=== PATIENT | female | born 1955 ===

== ENCOUNTER 2018-06-23 06:51 | Outpatient (CLI) | payer OTHER, SELFPAY ==
--- NOTE | 2018-06-23 10:30 | DI.MAMMO_ITS ---
SYMPTOM/DIAGNOSIS: SCREENING MAMMOGRAMS: Mammograms were interpreted according to the usual protocol including computer analysis with CAD system, tomosynthesis and C view imaging. Comparison is made with prior examinations. Breast density, Category B. No masses or microcalcifications are seen. There is nothing to suggest malignancy. IMPRESSION: Negative mammogram. Routine screening is recommended. Category 1. MQSA ASSESSMENT OF FINDINGS: Negative. Category 1. Patient will receive a letter notifying them of these results. BI-RADS category B. There are scattered areas of fibroglandular density.
== END 2018-06-23 07:11 ==
PROVIDERS: PCP Internal Medicine; Visit Provider Obstetrics & Gynecology Gynecology
DX: Z12.31 Encounter for screening mammogram for malignant neoplasm of breast (principal)
CPT/HCPCS: 77063; 77067

== ENCOUNTER 2020-04-15 23:50 | Day surgery (SDC) | payer OTHER, SELFPAY ==
[2020-04-15 23:56] VITALS: BP 118/99; PULSE 89; RESP 16; TEMP 36.5; O2SAT 99
--- NOTE | 2020-04-16 00:04 | W.ED.GENAD ---
Discharge Plan Disposition Patient Disposition: [facility] DAY SURGERY UNIT Condition: Stable Discharge Details Chief Complaint: GenMedical Clinical Impression: Esophageal foreign body Primary Care Provider: Crystal Riley ED Provider: Guille Mix Home Meds and New Rx's Prescriptions: No Action cetirizine [Zyrtec] 10 mg tablet 10 mg PO DAILY RF: 0 amlodipine 5 mg tablet 5 mg PO DAILY RF: 0 levothyroxine [Synthroid] 75 mcg tablet 75 mcg PO DAILY RF: 0 omeprazole 20 mg capsule,delayed release(DR/EC) 20 mg PO DAILY RF: 0 Voltaren 75 mg tablet 75 mg PO DAILY RF: 0 Medical Decision Making 65 yo female with no prior food impactions requiring endoscopy removal though [place] [facility] [place] stating she swallowed steak around 8pm and is stuck and she is unable to swallow liquids. She arrives hd stable speaking in full sentences without stridor or drooling. Points to upper sternum where she feels it is stuck normal oropharynx. Likely does have food impaction, will have her try effervescent no improvement with effervescent, unable to get even water down, will discuss with hotel controller general surgery spoke with Dr Rodriguez who will see pt at 7am, pt agreeable to stay in ED until then. Will be monitored until general surgery evaluates Dr. Rodriguez evaluated the pt plan to bring for endoscopy this AM and d/c home from there. pt reassessed during the shift and remained stable without drooling or stridor Differential Diagnosis Differential Diagnosis: esophageal foregin body, achalasia HPI General Mode of arrival: ambulatory. Date/Time Provider Initiated Documentation: 04/15/20 23:51. Limitations to Documentation: no limitations. Information obtained by: patient. History of Present Illness 65 year old F presents to the emergency department with the chief complaint of steak stuck in sore throat, described as moderate, and it has been constant. No relieving factors improve symptom(s), No exacerbating factors reported . Patient did receive the following treatments prior to arrival, none Related Data Home Medications Medication Instructions Recorded Confirmed amlodipine 5 mg tablet 5 mg PO DAILY 11/10/18 04/16/20 cetirizine 10 mg tablet 10 mg PO DAILY 11/10/18 04/16/20 levothyroxine 75 mcg tablet 75 mcg PO DAILY 11/10/18 04/16/20 omeprazole 20 mg capsule,delayed 20 mg PO DAILY 11/10/18 04/16/20 release Voltaren 75 mg PO DAILY 04/16/20 04/16/20 Allergies Allergy/AdvReac Type Severity Reaction Status Date / Time banana Allergy Verified 04/16/20 00:08 green pepper Allergy Verified 04/16/20 00:08 iodine Allergy Verified 04/16/20 00:08 pineapple Allergy Verified 04/16/20 00:08 shellfish derived Allergy Verified 04/16/20 00:08 Sulfa (Sulfonamide Allergy Verified 04/16/20 00:08 Antibiotics) codeine AdvReac Severe Naseau/Vomi Verified 04/16/20 00:08 ting hydrocodone AdvReac Severe [place]/Vomi Verified 04/16/20 00:08 ting oxycodone AdvReac Severe [place]/Vomi Verified 04/16/20 00:08 ting latex AdvReac Hives Verified 04/16/20 00:08 Review of Systems All systems reviewed & are unremarkable except as noted in HPI and below Constitutional Constitutional: Denies chills, Denies fever(s) and Denies weakness Cardiovascular Cardiovascular: Denies dyspnea Respiratory Respiratory: Denies cough and Denies dyspnea Gastrointestinal Gastrointestinal: Denies abdominal pain, Denies nausea and Denies vomiting Musculoskeletal Musculoskeletal: Denies joint swelling Neurologic Neurologic: Denies weakness Psychiatric Psychiatric: Denies depression [facility] Medical History (Updated 04/16/20 @ 01:00 by Guille Mix MD) Bilateral hearing loss (Acute) GERD (gastroesophageal reflux disease) (Chronic) Hypertension (Chronic) Hypothyroidism (Chronic) Osteoarthritis (Chronic) Tendonitis of elbow or forearm (Acute) Surgical History History of cholecystectomy (Chronic) History of hysterectomy for cancer (Acute) Social History Smoking/Tobacco Use Status: Never Second Hand Exposure: Yes Alcohol Intake: current Alcohol Intake frequency: a few times a month Drug use: Never Substance use type: does not use Seatbelt use: always Do you feel safe at home: Yes Do you feel safe in your relationship?: Yes Exam Const General: no acute distress Orientation: alert HENNV Head: normal to inspection Ears: external ears normal General nose exam: external nose normal Mouth: moist mucous membranes Eyes General: appearance normal, both eyes and all related structures Neck Neck: normal visual inspection Resp Effort & Inspection: normal respiratory effort and able to speak in complete sentences Cardio Rate: regular rate Skin General skin exam: no rashes or lesions noted Neuro General: patient alert and patient oriented x3 Extrem General: normal to inspection Psych Mental Status: mental status grossly normal
--- NOTE | 2020-04-16 00:40 | NUR.NOTE ---
Nursing Note:Dr. Mix spoke with the surgeon financial consultant. He will be in between 0500 and 0700 and take patient to the OR to remove the foreign body. Dr. Mix will give patient the option to go home or stay here. Patient has decided to stay here till the AM.
[2020-04-16] MEDS: Normal Saline 1,000 ML 150 ML IV (02:23)
--- NOTE | 2020-04-16 05:45 | NUR.NOTE ---
Nursing Note: Awake ambulatory to the bathroom.No drooling, managing her saliva.
[2020-04-16 08:14] VITALS: BP 137/83; PULSE 80; RESP 18; O2SAT 100
[2020-04-16 08:17] VITALS: TEMP 36.7
--- NOTE | 2020-04-16 08:36 | W.PM.HP.N ---
Date of service: 04/16/20 Time of Service: 08:36 Assessment and Plan Assessment and plan (1) Esophageal foreign body: Status: Acute Assessment and plan: I advised EGD with possible dilation. The procedure and risks of perforation with need for surgery discussed. Dilation may not improve symptoms or may need to be repeated in the future. If the esophagus is too inflamed, dilation may be reserved for a later elective procedure. May consider biopsy for eosinophilic esophagitis. The patient agrees to proceed. History of Present Illness Narrative: This 65 year old woman had steak become lodged in her esophagus last evening. She tried warm Coke and waited several hours for it to resolve without success. She did have some regurgitation of saliva on the drive to the ER but has now been able to control her secretions. She still feels that something is lodged in the esophagus. There has been no improvement with effervescent granules times two. Her reflux is well controlled with PPI and occasional evening H2 dennise. This has never happened to her previously but she did notice some minor issues with bread passing slowly. EGD done about 10 years ago at [facility] [place] was unremarkable, no Barretts. Review of Systems All systems reviewed & are unremarkable except as noted in HPI and below PFSH Medical History Bilateral hearing loss (Acute) GERD (gastroesophageal reflux disease) (Chronic) Hypertension (Chronic) Hypothyroidism (Chronic) Osteoarthritis (Chronic) Tendonitis of elbow or forearm (Acute) Surgical History History of cholecystectomy (Chronic) History of hysterectomy for cancer (Acute) Social History Smoking/Tobacco Use Status: Never Second Hand Exposure: Yes Alcohol Intake: current Alcohol Intake frequency: a few times a month Drug use: Never Substance use type: does not use Seatbelt use: always Do you feel safe at home: Yes Do you feel safe in your relationship?: Yes Meds Home Medications and Allergies Home Medications Medication Instructions Recorded Confirmed Type amlodipine 5 mg tablet 5 mg PO DAILY 11/10/18 04/16/20 History cetirizine 10 mg tablet 10 mg PO DAILY 11/10/18 04/16/20 History levothyroxine 75 mcg tablet 75 mcg PO DAILY 11/10/18 04/16/20 History omeprazole 20 mg capsule,delayed 20 mg PO DAILY 11/10/18 04/16/20 History release Voltaren 75 mg PO DAILY 04/16/20 04/16/20 History Allergies Allergy/AdvReac Type Severity Reaction Status Date / Time banana Allergy Verified 04/16/20 00:08 green pepper Allergy Verified 04/16/20 00:08 iodine Allergy Verified 04/16/20 00:08 pineapple Allergy Verified 04/16/20 00:08 shellfish derived Allergy Verified 04/16/20 00:08 Sulfa (Sulfonamide Allergy Verified 04/16/20 00:08 Antibiotics) codeine AdvReac Severe [place]/Vomi Verified 04/16/20 00:08 ting hydrocodone AdvReac Severe [place]/Vomi Verified 04/16/20 00:08 ting oxycodone AdvReac Severe [place]/Vomi Verified 04/16/20 00:08 ting latex AdvReac Hives Verified 04/16/20 00:08 Exam Narrative Exam Narrative: No acute distress Able to control secretions Lungs CTA Heart RRR Abdomen soft, nontender Results Last Vital Signs Temp 98.1 F 04/16/20 08:17 Pulse 80 04/16/20 08:14 Resp 18 04/16/20 08:14 BP 137/83 04/16/20 08:14 Pulse Ox 100 04/16/20 08:14 COVID-19 Screening Have you,or household,traveled outside [place] in last 14 days?: No Had IN PERSON contact w/suspected or confirmed C-19 person: No
[2020-04-16 08:43] VITALS: BP 137/83; PULSE 80; RESP 18; TEMP 36.7; O2SAT 100
[2020-04-16] MEDS: Lactated Ringers 1,000 ML 100 ML IV (09:20)
--- NOTE | 2020-04-16 09:35 | ESO_PTH ---
PATIENT: Mary Kate Barba LOC: [facility] U#:[id number] AGE/SX: 65/F ROOM: RE04/16/[address]: Arin Rodriguez MD : [id number] BED: DIS: 04/16/2020 SPEC #: [id number] RECD: 04/16/20 10:31 STATUS: ENT REQ #: [id number] MARLEY: 04/16/20 09:[address]: Arin Rodriguez DEPT: Surgical Specimen RECD BY: Kareen Hernandez ENTERED: 04/16/20 10:37 SP TYPE: Eso YEMI DR: Crystal Riley Tissues: 1 - STOMACH BIOPSY 2 - ESOPHAGUS BIOPSY 3 - ESOPHAGUS BIOPSY Procedures: GROSS AND MICRO LEVEL 4 Comments: [id number]
--- NOTE | 2020-04-16 10:11 | W.PM.DSUDISC ---
Discharge Plan Disposition Patient Disposition: HOME Condition: Stable Discharge Details Chief Complaint: GenMedical Clinical Impression: Esophageal foreign body Reason For Visit: EGD Attending Provider: Arin Rodriguez Primary Care Provider: Crystal Riley ED Provider: Guille Mix Home Meds and New Rx's Prescriptions: Continued cetirizine [Zyrtec] 10 mg tablet 10 mg PO DAILY RF: 0 amlodipine 5 mg tablet 5 mg PO DAILY RF: 0 levothyroxine [Synthroid] 75 mcg tablet 75 mcg PO DAILY RF: 0 omeprazole 20 mg capsule,delayed release(DR/EC) 20 mg PO DAILY RF: 0 Voltaren 75 mg tablet 75 mg PO DAILY RF: 0 Discharge Instructions Additional Instructions: Findings: The food bolus had passed. The distal esophagus is moderately inflamed. Biopsies were done and my office will contact you with results. A benign stricture was also seen but not dilated due to the inflammation and pending biopsies. Increase your omeprazole to twice a day for one month. Follow up: My office will contact you. Please call if you develop: fevers >101.5 Nausea or Vomiting Abdominal/chest pain that is not transient DAY SURGERY UNIT POST EGD INSTRUCTIONS 1. Because there will be medication in your system for the next 24 hours, you may feel a little sleepy. Your coordination will be affected. Therefore: a. Do not drive or operate dangerous equipment for 24 hours. b. Do not drink alcohol beverages for 24 hours (not even beer). c. Plan to go home and rest for the day. 2. Generally there are no restrictions on your activity after a day or so has gone by, but you may feel a bit fatigued for a few days. 3 After you arrive home you may have a light meal and return to a normal diet as you can tolerate it without feeling sick to your stomach. 4. After surgery, you may feel pain or discomfort. This should be only transient, but if it persists please contact your doctor. 5. If there are any questions regarding the findings of your procedure, please feel free to contact your doctor. 6. If you are unable to contact your doctor with a problem, contact the hospital at [phone]. 7. Continue all your regular medications unless directed otherwise. I understand the above instructions and have no questions. Signature of Patient or Responsible Adult Escort Date/Time Name of Responsible Adult Escort Signature of Nurse Date/Time Activity:: Activity as Tolerated Diet:: Soft for two days Discharge Orders Discharge Orders: Discharge Order (Routine); Ordered 04/16/20 Ordered By: Arin Rodriguez DS: Diagnosis Discharge Diagnosis (1) Esophagitis: Status: Acute (2) Benign esophageal stricture: Status: Acute
--- NOTE | 2020-04-16 10:15 | W.PM.ENDDOP ---
Date of service: 04/16/20 Time of Service: 10:16 Endoscopy Report DATE OF PROCEDURE: 04/16/20 PRE-OP DIAGNOSIS: Esophageal foreign body POST-OP DIAGNOSIS: other (Esophagitis, benign distal esophageal stricture) PROCEDURE: EGD with gastric and esophageal biopsies. SURGEON: Arin Rodriguez ANESTHESIA: GETA INDICATIONS: This 65-year-old woman presents with a piece of steak stuck in her esophagus for several hours. She initially had regurgitation but now has been able to control her secretions. She has a longstanding history of reflux. PROCEDURE DESCRIPTION: The patient was placed in the left lateral position and propofol titrated to sedation. The endoscope was advanced into the esophagus under direct visualization. The food bolus had passed and was not seen in the esophagus or stomach. The scope was passed through the stomach and into the duodenum. There was no duodenitis or ulceration noted. The stomach itself was normal including on retroflexed view of the fundus and lesser curvature. Routine biopsies were taken from the gastric antrum to evaluate for H pylori. The GE junction was inspected and showed a benign stricture. The distal third of the esophagus showed moderate inflammation with some areas suggesting eosinophilic esophagitis. Biopsies were taken from the distal and mid esophagus. There was not obvious Barretts esophagus present. I did not dilate due to the inflammation and pending biopsy results. The patient tolerated the procedure well and was stable to recovery. She is advised to increase her PPI to BID. Will contact with biopsy results and proceed as indicated.
[2020-04-16 10:38] VITALS: BP 134/89; PULSE 77; RESP 18; TEMP 36.1; O2SAT 97
[2020-04-16 20:37] LABS: COVID-19 RT-PCR UVMMC Result Negative (Negative)
== END 2020-04-16 11:16 | disposition home or self-care (01) ==
LOC: ER 04-16 07:14 → SUR 04-16 08:44
PROVIDERS: Emergency Provider Emergency Medicine; PCP Family Medicine; Visit Provider Surgery
PROC: 0DC68ZZ Extirpation of Matter from Stomach, Via Natural or Artificial Opening Endoscopic (ICD-10-PCS; CPT 43247; principal; 2020-04-16 09:00)
DX: T18.128A Food in esophagus causing other injury, initial encounter (principal); K21.0 Gastro-esophageal reflux disease with esophagitis; E03.9 Hypothyroidism, unspecified; I10 Essential (primary) hypertension; Z11.59 Encounter for screening for other viral diseases; K22.2 Esophageal obstruction
CPT/HCPCS: 43239; 36415; 88305; 96360; 96361; 99222; 99285; U0003; 99283; J1100; J2250

== ENCOUNTER → 2021-01-31 00:38 | Outpatient (CLI) | payer OTHER, SELFPAY ==
--- NOTE | 2021-01-31 | DI.CT_ITS ---
Exam(s) CT ABDOMEN PELVIS W EXAM: CT ABDOMEN PELVIS W CLINICAL HISTORY: ACUTE ABD PAIN, R10.9 TECHNIQUE: Imaging Protocol: Axial computed tomography images with coronal and sagittal reformatted images were created and reviewed CONTRAST MATERIAL: Intravenous: Omnipaque 350 Contrast volume:100 mL Oral: Yes COMPARISON: No exams were available for comparison FINDINGS: ABDOMEN: Lung Bases: Normal where visualized. There is a small hiatal hernia. Liver: Normal density. No measurable mass. Portal, Superior Mesenteric, and Splenic Veins: Unremarkable. Gallbladder and Biliary Tract: Status post cholecystectomy. No biliary ductal dilatation. Pancreas: Normal density, no abnormal calcifications or inflammatory process. There is a small divert iculum is arising from the duodenum adjacent to the pancreatic head. Spleen: Normal. Adrenals: No masses seen. Kidneys: Normal size, contour and axis. No radiodense stones or obstructive uropathy. No masses seen. Abdominal Aorta: Abdominal portion non-dilated. Bowel: No evidence of bowel obstruction. No evidence of appendicitis. There is extensive colonic di verticulosis. Inflammatory stranding is seen around the proximal sigmoid colon suggestive of acute d iverticulitis. There is also bowel wall thickening in the mid sigmoid colon. Peritoneal Cavity: No ascites, collection or mesenteric inflammatory response. No free air. Lymph Nodes: Within normal limits. Bones: Within normal limits for the patient's age. Soft Tissues: There is a fat containing supraumbilical hernia. PELVIS: Bladder: Symmetric distention, no gross wall thickening. Reproductive Organs: Status post hysterectomy. Lymph Nodes: Within normal limits. Bones: Within normal limits for the patient's age. IMPRESSION: Findings suggestive of acute sigmoid diverticulitis. No abscess or free air. RADIATION DOSE DELIVERED: 991.42mGy.cm Total DLP DATA REPOSITORY: All CT scans at this facility are submitted to the National Radiology Data Registry (NRDR) Dose Index Registry (DIR) with the [employer] (ACR). RADIATION OPTIMIZATION: All CT scans at this facility use at least one of these dose optimization te chniques: automated exposure control; mA and/or kV adjustment per patient size (includes targeted exa ms where dose is matched to clinical indication); or iterative reconstruction.
[2021-01-31] MEDS: Omnipaque 350 MG/ML 100 ML BTL IJ (15:08)
[2021-01-31] MEDS: Normal Saline - Diluent 50 ML VIAL IV (15:09)
[2021-01-31] MEDS: Omnipaque 350 MG/ML 50 ML BTL IJ (15:12)
== END ==
PROVIDERS: PCP Family Medicine; Visit Provider Family Medicine
DX: R10.9 Unspecified abdominal pain (principal); K44.9 Diaphragmatic hernia without obstruction or gangrene
CPT/HCPCS: 74177; J3490; Q9967

== ENCOUNTER 2021-01-31 20:24 | Outpatient (REF) | payer OTHER, SELFPAY ==
[2021-01-31 14:09] LABS: Abs Immature Grans 0.01 10^3/uL (0.0-0.06); Absolute Basophil Count 0.06 10^3/uL (0.0-0.2); Absolute Eosinophil Count 0.14 10^3/uL (0.0-0.7); Absolute Lymphocyte Count 1.02 10^3/uL (1.2-3.4); Absolute Monocyte Count 0.34 10^3/uL (0.1-0.8); Absolute Neutrophil Count 3.26 10^3/uL (1.2-6.7); Basophils % 1.2; Eosinophils % 2.9; HCT 41.1 % (36.0-46.0); HGB 13.2 g/dL (11.2-15.7); Immature Grans % 0.2; Lymphocytes % 21.1; MCH 26.2 pg (27.0-33.0); MCHC 32.1 % (32.0-36.0); MCV 81.7 fL (80-95); MPV 9.6 fL (8.0-11.0); Neutrophils % 67.6; Nucleated RBC 0 %; Platelet Count 302 10^3/uL (130-400); RBC 5.03 10^6/uL (3.93-5.22); RDW 13.3 % (11.7-14.6); RDW-SD 39.5 fL; WBC 4.83 10^3/uL (4.4-10.8)
[2021-01-31 14:21] LABS: ALT 30 U/L (14-59); AST 18 U/L (15-37); Albumin 3.9 g/dL (3.4-5.0); Alkaline Phosphatase 118 U/L (46-116); Anion Gap 10.9 mmol/L (3-11); BUN 12 mg/dL (7-18); Bilirubin, Total 0.6 mg/dL (0.2-1.0); CO2 27.1 mmol/L (21.0-32.0); CREATININE 0.8 mg/dL (0.55-1.02); Calcium 9.2 mg/dL (8.5-10.1); Chloride 107 mmol/L (98-107); Glucose 92 mg/dL (74-106); Potassium 3.5 mmol/L (3.5-5.1); Sodium 145 mmol/L (136-145)
[2021-01-31 15:26] LABS: Bilirubin Negative (Negative); Blood Negative (Negative); Clarity Clear (Clear); Glucose Negative (Negative); Ketones Trace mg/dL (Negative); Leukocyte Esterase Trace (Negative); Nitrite Negative (Negative); Specific Gravity 1.025 (1.005-1.025)
[2021-01-31 15:42] LABS: Casts Negative LPF (Negative); Crystals Many Calcium Oxalate HPF (Negative); Epithelial Cells Many HPF (Negative); Mucus Negative (Negative); RBC Negative HPF (0-2)
[2021-01-31 15:52] LABS: Bacteria Moderate HPF (Negative); C & S Indicated? No/Sq. Contamination
[2021-02-06 15:07] LABS: B. pertussis IgG Negative (Negative); B. pertussis Value <5.00 IU/mL
== END 2021-01-31 20:25 | disposition home or self-care (01) ==
LOC: NCHCN 20:24
PROVIDERS: PCP Family Medicine; Visit Provider Family Medicine
DX: R10.9 Unspecified abdominal pain (principal); R76.8 Other specified abnormal immunological findings in serum; R82.998 Other abnormal findings in urine
CPT/HCPCS: 80053; 86615; 87798; 81003; 81015; 85025

== ENCOUNTER → 2021-06-19 13:31 | Outpatient (BNVA) | payer OTHER, SELFPAY | PROVIDERS: PCP Family Medicine; Referring Provider Family Medicine; Visit Provider Surgery | DX: R10.9 Unspecified abdominal pain (principal); I10 Essential (primary) hypertension; K21.9 Gastro-esophageal reflux disease without esophagitis; K57.32 Diverticulitis of large intestine without perforation or abscess without bleeding | CPT/HCPCS: 99203; 99214 ==

== ENCOUNTER 2021-07-16 16:49 | Outpatient (REF) | payer OTHER, SELFPAY ==
[2021-07-16 22:34] LABS: HCT 43.2 % (36.0-46.0); HGB 13.7 g/dL (11.2-15.7); MCH 26.6 pg (27.0-33.0); MCHC 31.7 % (32.0-36.0); MCV 83.9 fL (80-95); MPV 9.9 fL (8.0-11.0); Platelet Count 248 10^3/uL (130-400); RBC 5.15 10^6/uL (3.93-5.22); RDW 13.2 % (11.7-14.6); RDW-SD 40.6 fL; WBC 4.76 10^3/uL (4.4-10.8)
[2021-07-16 22:51] LABS: ALT 32 U/L (14-59); AST 19 U/L (15-37); Albumin 4.1 g/dL (3.4-5.0); Alkaline Phosphatase 118 U/L (46-116); Anion Gap 8.6 mmol/L (3-11); BUN 16 mg/dL (7-18); Bilirubin, Total 0.6 mg/dL (0.2-1.0); CO2 28.4 mmol/L (21.0-32.0); CREATININE 0.7 mg/dL (0.55-1.02); Calcium 8.8 mg/dL (8.5-10.1); Calculated LDL 162 mg/dL (<100); Chloride 106 mmol/L (98-107); Cholesterol 240 mg/dL (<200); Glucose 88 mg/dL (74-106); HDL Cholesterol 53 mg/dL (40-60); Potassium 4.1 mmol/L (3.5-5.1); Sodium 143 mmol/L (136-145); Total Protein 6.9 g/dL (6.4-8.2); Triglyceride 125 mg/dL (<150)
== END 2021-07-16 16:50 | disposition home or self-care (01) ==
LOC: NCHCN 16:49
PROVIDERS: PCP Family Medicine; Visit Provider Family Medicine
DX: E03.9 Hypothyroidism, unspecified (principal); I10 Essential (primary) hypertension; K57.32 Diverticulitis of large intestine without perforation or abscess without bleeding
CPT/HCPCS: 80053; 80061; 85027; 84443

== ENCOUNTER 2021-08-20 03:26 | Outpatient (CLI) | payer MEDICARE, SELFPAY ==
[2021-08-20 11:35] LABS: Source Nasal/Nares
[2021-08-20 15:41] LABS: COVID-19 PCR Negative (Negative)
== END 2021-08-20 03:27 | disposition home or self-care (01) ==
LOC: LBO 03:28
PROVIDERS: PCP Family Medicine; Visit Provider Surgery
DX: Z20.822 Contact with and (suspected) exposure to COVID-19 (principal); Z01.818 Encounter for other preprocedural examination
CPT/HCPCS: 87635

== ENCOUNTER 2021-08-22 06:13 | Day surgery (SDC) | payer MEDICARE, SELFPAY ==
--- NOTE | 2021-08-21 16:56 | COLE_ITS ---
Colonoscopy Report Date of procedure: 08/22/21 Pre-op diagnosis general: abdominal pain/diverticulitis Post-op diagnosis procedure note: other (severe pandiverticulitis. no active bleedin or infections.) Surgeon: Zahira Charles Anesthesia Type: General:No Airway Estimated blood loss (mL): 0 Pathology: none sent Complications: None Disposition: same day Prep: Miralax/Dulcolax Retraction Time: 8 Procedure Description: After informed consent was obtained the patient was taken to the procedure room and placed in a left decubitous position. Monitors were applied and a time out was done. The patients name, date of , procedure, allergies to medications and metal in their body was reviewed. The patient was then sedated. Once sedated and comfortable a rectal exam was done. External exam was normal. Internal exam revealed a normal sphincter tone and no palpable m asses. The scope was then introduced and retrofelexed. no internal hemorrhoids were identified. The scope was then advanced to the cecum w/out difficulty. The TI and appendiceal orifice were identified. The prep was good. The scope was then slowly retracted over 8 minutes back into the rectum. She does have severe diverticular disease that carries all the way over from the sigmoid to the cecum. There is no signs of active bleeding or infection. No polyps or AVMs were identified today. the scope was removed and the patient was woken up and taken back to Same day surgery in stable condition. The patient tolerated the procedure well and there were no immediate complications. Follow up: Because of the severity of her diverticular disease, I would not recommend she has any further routine screening colonoscopies, unless they develop changes in bowel habits or other new gastrointestinal complaints.
--- NOTE | 2021-08-21 17:08 | ENDO_ITS ---
Date of service: 08/22/21 Endoscopy Report DATE OF PROCEDURE: 08/22/21 PRE-OP DIAGNOSIS: Eosinophilic esophagitis/ dysphagia/ history of stricture/ POST-OP DIAGNOSIS: other (Hiatal hernia/ mild esophagitis/, mild gastritis) SURGEON: Zahira Charles ANESTHESIA TYPE: General:No Airway ESTIMATED BLOOD LOSS: 2 PATHOLOGY: other COMPLICATIONS: Other DISPOSITION: same day PROCEDURE DESCRIPTION: After informed consent was obtained the patient was take to the procedure room and placed in a supine position. Monitors were applied and a time out was done. The patients name, date of , procedure type, allergies to medications and metal in their body was reviewed. A bite block was placed and the patient was sedated. Once sedated and comfortable the gastroscope was advanced through the oropharynx which was grossly normal into the esophagus. The proximal and mid-esophagus were nl. In the distal esophagus there was noted: Mild esophagitis and hiatal hernia sliding-type, approximately 2 cm.. There is no esophageal varices, diverticula, or stricture visualized today. The scope was advanced into the stomach and through the pylorus into the 3rd portion of the duodenum. The duodenum was noted to be normal. Biopsies were done, all specimens are retrieved and no bleeding is noted. The scope was retracted back into the stomach and biopsies were done to rule out H. pylori. There were no ulcers. There is mild gastritis in a striped fashion at the antrum and in the dependent portions of the stomach. The scope was retroflexed. The cardia and fundus were noted to be normal. There small a hiatal hernia [id number] 2 cm.. The scope was retracted back into the esophagus and b iopsies were done of the GE junction to rule out Engel's. The Z line was regular. The GE junction was at 38 cm. The scope was removed and the patient was woken up and taken back to [facility] in stable condition. Follow up: 2 to 3 weeks time to review biopsy results
--- NOTE | 2021-08-21 17:14 | PDOC.DSDIS_ITS ---
Discharge Plan Disposition Patient Disposition: HOME Condition: Good Discharge Details Reason For Visit: stomach and colon scope Attending Provider: Zahira Charles Primary Care Provider: Crystal Riley Home Meds and New Rx's Prescriptions: Continued melatonin 10 mg capsule 10 mg PO HS PRNRF: 0 Tylenol Extra Strength 500 mg powder in packet 1,000 mg PO Q6H PRNRF: 0 CBD PO RF: 0 cetirizine [Zyrtec] 10 mg tablet 10 mg PO DAILY RF: 0 amlodipine 5 mg tablet 5 mg PO HS RF: 0 levothyroxine [Synthroid] 75 mcg tablet 75 mcg PO DAILY RF: 0 omeprazole 20 mg capsule,delayed release(DR/EC) 20 mg PO BID RF: 0 cholecalciferol (vitamin D3) 50 mcg (2,000 unit) capsule 50 mcg PO DAILY RF: 0 omega-3 fatty acids [Fish Oil Concentrate] 1,000 mg capsule 1,000 mg PO DAILY RF: 0 Discontinued ascorbic acid (vitamin C) 500 mg capsule 1,000 mg PO DAILY RF: 0 polyethylene glycol 3350 17 gram/dose powder 238 g PO ONCE Qty: 238 RF: 0 bisacodyl [Dulcolax (bisacodyl)] 5 mg tablet,delayed release (DR/EC) 5 mg PO ONCE Qty: 4 RF: 0 Discharge Instructions Additional Instructions: DSU Colonoscopy Post- Op Instructions Instructions for Everyone who is given Anesthesia: For your safety, please do the following for the next twenty-four (24) hours: *Do Not operate a motor vehicle (car, truck, motorcycle, etc.) *Do Not drink alcoholic beverages or use any recreational drugs for the first 24 hours or while taking pain medications. The medications in your body may have a reaction that can be dangerous. *Do Not make any important decisions or sign any important papers. Findings: Hiatal hernia esophagitis no stricture -severe diverticula -stop Vit C -no ASA/NSAID's -continue high fiber diet Follow up:2-3 wks to review bx results Awaiting to see results of biopsies before making any medication changes. 1. No lifting over 20 pounds or strenuous activity for the first 24 hours after your procedure. After 24 hours there are no restrictions on your activity but you may feel fatigued for a few days. 2. After you arrive home you may have a light meal and return to your normal diet as you can tolerate it without feeling sick to your stomach. 3. You may have a bloated, gaseous feeling in your belly (abdomen) after a colonoscopy. Passing gas and belching will help. Walking or lying down on your left side with your knees flexed may relieve the discomfort. Call the office at [phone] (Office) or [phone] (Hospital) right away if you notice any of the following: a.Vomiting of blood or ?coffee ground stools?. b.Rectal bleeding 1Tbsp, blood clots or continuous bleeding. c.Severe belly (abdominal) pain. d.A hard distended belly (abdomen) and an inability to pass gas. 4. Please don?t expect to have a normal BM (bowel movement) for 2-3 days after your procedure. 5. If there are questions regarding the findings of your procedure, please contact your doctor 6. If you are unable to contact your doctor with a problem, contact the hospital at [phone]. 7. Continue all your regular medications unless directed otherwise. I understand the above instructions and have no questions. Signature of Patient or Adult Escort Name of Responsible Adult Escort Signature of Nurse Date/Time Activity:: See above Diet:: See above Discharge Orders Discharge Orders: Discharge Order (Routine); Ordered 08/21/21 Ordered By: Zahira Charles DS: Diagnosis Discharge Diagnosis (1) GERD (gastroesophageal reflux disease): Status: Chronic (2) Esophagitis: Status: Acute (3) Eosinophilic esophagitis: Status: Acute (4) Food allergy: Status: Acute (5) Colon cancer screening: Status: Acute (6) Pancolonic diverticulosis: Status: Acute
[2021-08-22 06:15] VITALS: BP 155/95; PULSE 89; RESP 100; TEMP 36.4; O2SAT 100
[2021-08-22] MEDS: Lactated Ringers 1,000 ML 80 ML IV (06:48)
--- NOTE | 2021-08-22 07:04 | W.ANESPRE ---
General Info Date of Service Date Performed: 08/22/21 Height: 5 ft 3 in Weight: 74.3 kg Body Mass Index (BMI): 29.0 Surgical Procedure: Operation Date: 08/22/21 07:35 Proposed Procedures Side Surgeon p Colonoscopy/Gastroscopy with possible dilitation Zahira Charles DO Meds Allergies and Home Medications Allergies Allergy/AdvReac Type Severity Reaction Status Date / Time Sulfa (Sulfonamide Allergy Severe Verified 08/22/21 06:36 Antibiotics) bacitracin Allergy Unknown Verified 08/22/21 06:36 [From Neosporin ([id number])] neomycin Allergy Unknown Verified 08/22/21 06:36 [From Neosporin ([id number])] polymyxin B Allergy Unknown Verified 08/22/21 06:36 [From Neosporin ([id number])] banana Allergy Verified 08/22/21 06:36 green pepper Allergy Verified 08/22/21 06:36 iodine Allergy Verified 08/22/21 06:36 pineapple Allergy Verified 08/22/21 06:36 shellfish derived Allergy Verified 08/22/21 06:36 codeine AdvReac Severe [place]/Vomi Verified 08/22/21 06:36 ting hydrocodone AdvReac Severe [place]/Vomi Verified 08/22/21 06:36 ting oxycodone AdvReac Severe [place]/Vomi Verified 08/22/21 06:36 ting latex AdvReac Hives Verified 08/22/21 06:36 Home Medication Medication Instructions Recorded amlodipine 5 mg tablet 5 mg PO HS 11/10/18 cetirizine 10 mg tablet 10 mg PO DAILY 11/10/18 levothyroxine 75 mcg tablet 75 mcg PO DAILY 11/10/18 cholecalciferol (vitamin D3) 50 50 mcg PO DAILY 02/27/21 mcg (2,000 unit) capsule omega-3 fatty acids 1,000 mg 1,000 mg PO DAILY 02/27/21 capsule omeprazole 20 mg capsule,delayed 20 mg PO BID cap 02/27/21 release CBD PO 06/19/21 acetaminophen 500 mg oral powder 1,000 mg PO Q6H PRN 06/19/21 packet ascorbic acid (vitamin C) 500 mg 1,000 mg PO DAILY cap 06/19/21 capsule bisacodyl 5 mg tablet,delayed 5 mg PO ONCE #4 tab 06/19/21 release melatonin 10 mg capsule 10 mg PO HS PRN 06/19/21 polyethylene glycol 3350 17 238 g PO ONCE #238 g 06/19/21 gram/dose oral powder Current Visit Medications: Current Medications Generic Name Dose Route Start Last Admin Trade Name Freq PRN Reason Stop Dose Admin Hyoscyamine Sulfate 0.125 mg 08/21/21 16:56 Hyoscyamine 0.125 Mg Sl/Oral/Chew SL DIRECTED PRN Ringer's Solution 1,000 mls @ 80 mls/hr 08/22/21 06:00 08/22/21 06:48 IV 09/20/21 23:59 80 mls/hr INFUSION DENICE Administration IV Miscellaneous Supplies 1 each 08/22/21 06:00 Iv Access IV 09/20/21 23:59 DIRECTED DENICE Ondansetron HCl 4 mg 08/21/21 16:56 Ondansetron 4 Mg/2 Ml Vial IVP Q4H PRN PRN Nausea / Vomiting Sodium Chloride 0 ml 08/22/21 06:00 Normal Saline Flush 10 Ml Syr IV 09/20/21 23:59 PRN PRN Sodium Chloride 0 ml 08/22/21 06:00 Normal Saline 10 Ml Vial IJ 09/20/21 23:59 DIRECTED PRN Sterile Water 0 ml 08/22/21 06:00 Water,Injection,Sterile 10 Ml Vial IJ 09/20/21 23:59 DIRECTED PRN PFSH Active Problems Active Problems: Problem Status Onset Code GERD (gastroesophageal reflux disease) K21.9 Hypertension I10 Hypothyroidism E03.9 Esophageal foreign body T18.108A Esophagitis K20.9 Benign esophageal stricture K22.2 Eosinophilic esophagitis K20.0 Food allergy Z91.018 Diverticulitis large intestine K57.32 Medical History Medical History Bilateral hearing loss Hx of cancer of endometrium Osteoarthritis Tendonitis of elbow or forearm Surgical History Surgical History History of cholecystectomy History of colonoscopy History of hysterectomy for cancer History of tonsillectomy Tobacco Smoking/Tobacco Use Status: Never Second hand exposure: Yes Alcohol Alcohol Intake: current Alcohol intake frequency: holidays/special occasions only Substance Use Substance use: Never Substance use type: does not use Vital Signs and Lab Results Vital Signs Most Recent Vital Signs in EMR: Most Recent Vital Signs Temp Pulse Resp BP Pulse Ox 36.4 C L 89 100 H 155/95 H 100 08/22/21 06:15 08/22/21 06:15 08/22/21 06:15 08/22/21 06:15 08/22/21 06:15 Lab Results Blood Type / Crossmatch: No Data to Display Complete Blood Count: No Data to Display Complete Metabolic Panel: No Data to Display Liver Function Panel: No Data to Display Coagulation Panel: No Data to Display Cardiac Panel: No Data to Display Arterial Blood Gas: No Data to Display Venous Blood Gas: No Data to Display Pancreas Panel: No Data to Display Thyroid Panel: No Data to Display Infectious Disease: Coronavirus (COVID-19)(PCR) Negative (Negative) 08/20/21 08:34 08/20/21 Coronavirus 2019 Source Nasal/Nares 08/20/21 08:34 08/20/21 Blood Cultures: No Data to Display Toxicology Panel: No Data to Display Anesthesia Assessment and Plan Anesthesia History Personal History: No History of Anesthesia Complications Family History: No Family History of Anesthesia Complications Exercise Tolerance Exercise Tolerance: Metabolic Equivalents>4 Pertinent Negatives Pertinent Negatives: No Symptoms of GERD, No Major Cardiovascular Symptoms or Complaints, No Major Pulmonary Symptoms or Complaints (Very well controlled mild asthma) and No History of CVA/TIA Cardiac & Pulmonary Exam Cardiac Exam: Normal S1/S2 Heart Sounds Pulmonary Exam: Clear Bilateral Breath Sounds Implantable Cardiac Device Does patient have a Pacemaker or an ICD?: No Airway Exam Known Difficult Airway: No Mallampati Class: 1 Mouth Opening: Normal (> 3cm) Thyromental Distance: Greater than 3 cm Neck Range of Motion: Full ROM Neck Circumference: Normal Teeth Condition: Normal Dentition Airway Comments: High angle narrow palate ASA Classification ASA Score: ASA 2 Emergency Case?: No NPO Status NPO Status: NPO Clears >2 hours, Solids >8 hours Anesthesia Plan Resuscitation Status: Full Code Anesthesia Technique: General Anesthesia Airway Planned: Natural Airway Monitors Used: Standard Monitors
[2021-08-22 07:07] VITALS: BMI 29.0
--- NOTE | 2021-08-22 07:36 | HPE_ITS ---
Date of service: 08/22/21 Time of Service: 07:36 Assessment and Plan Assessment and plan (1) GERD (gastroesophageal reflux disease): Status: Chronic (2) Esophageal foreign body: Status: Acute (3) Benign esophageal stricture: Status: Acute (4) Eosinophilic esophagitis: Status: Acute (5) Food allergy: Status: Acute (6) Diverticulitis large intestine: Status: Acute (7) Colon cancer screening: Status: Acute Assessment and plan: Plan:Colonscopy & EGD w/ MAC The patient will be scheduled by my office. The pt understands that they need to do a bowel prep and the importance of hydration during this. The patient understands there is a theoretical risk of renal failure. For healthy patients we use Gatorade/Miralax Prep. For anyone with renal concerns- GoLytely will be used. Thank you for allowing me to participate in the care of this Patient. A copy of the Endoscopy report will be forwarded to your office. Informed consent is ob tained for the procedural (explained in simple layman's terms that the pt and/or family could understand) explaining risks vs benefits and alternatives to the procedure and consequences if we do not do the procedure and need/rational for the procedure. Risks include but are not limited to: bleeding, infection, perforation of colon. This would necessitate emergency surgery to repair the damage w/ possible ostomy; and other associated complications w/ the required surgery. Also complications of anesthesia including aspiration, CA/CVA/. I discussed with the patient would they could expect during the procedure, post procedure and recovery time and risks. The patient understands that they need to have a ride home after the procedure. The patient was given all this information in writing and expressed understanding. to your office. If there are any questions or concerns please feel free to contact History of Present Illness Narrative: [facility] PATIENT NAME: Keeley Barba #: [id number] ADMITTING PROVIDER: Zahira Charles #: [id number] PRIMARY CARE PROVIDER:KAREN ESCOBAR DATE OF ADMIT: 06/19/21 : 1955 Assessment & Plan (1) Abdominal pain: (2) Benign esophageal stricture: (3) Esophagitis: (4) Eosinophilic esophagitis: (5) Food allergy: (6) Diverticulitis large intestine: (7) Hypothyroidism: (8) Hypertension: (9) GERD (gastroesophageal reflux disease): -Risks: Informed consent is obtained for the procedural (explained in simple layman's terms that the pt and/or family could understand) explaining risks vs benefits and alternatives to the procedure and consequences if we do not do the procedure and need/rational for the procedure. Risks include but are not limited to:bleeding, infection, perforation of colon or esophagus. This would necessitate emergency surgery to repair the damage w/ possible ostomy; and other associated complications w/ the required surgery. Also complications of anesthesia including aspiration,CA/CVA/. I discussed with the patient would they could expect during the procedure, post procedure and recovery time and risks. The patient understands that they need to have a ride home after the procedure. The patient was given all this information in writing and expressed understanding. -eosinophilic esophagitis: avoid food triggers cont PPI -bladder pain: may be due to scar tissue or colon adhered to the bladder. We did review the CT. I would not advise surgical intervention for this. As the scar tissue would most likely just re-form. Patient does need to undergo EGD and colonoscopy. We did discuss these procedures in detail and I tried to alleviate her fears to the best of my ability. We also reviewed diet for her diverticulitis. Patient was given information on this today 45 minutes spent with patient today in consultation and scheduling surgery. Plan Detail New: polyethylene glycol 3350 take per colonoscopy instructions 238 grams PO ONCE 238 grams 0RF colonoscopy prep bisacodyl (Dulcolax (bisacodyl)) take per colonoscopy instructions 5 mg PO ONCE 4 tabs 0RF colonscopy bowel prep Total time on date of encounter, (qkjg-vf-xtci and non pbnd-di-teod) (minutes): 45 Time was spent: reviewing prior notes and diagnostics, providing direct patient care, ordering diagnostics and/or referrals, documenting today's visit, updating the EMR, coordinating care and other HPI Pt had diverticulitis in 02/03. I did review all her notes and CT scans and lab work associated with this. She is up to 22grams of fiber daily. She has been very conscious about diet, water intake, exercise, and rest. When her bladder gets full, she notes that she has pain on the left side. This has been same since February. Not had f/u CT. She denies any fever/chills. No air or sediment in urine. She only has pain when bladder is full. The pain dissipates once she empties her bladder. She is moving her bowels 2-4x's a day. Her stools are formed and no blood. Weight has been stable. She is eating a very soft diet. Mostly eggs and soft foods. She has no problems swallowing this. SHe is taking prilosec 20mg BID. This controls her H/I s/s. She had childhood smoke exposure- but is not a smoker. +food allergies. Hikes 2-3x a week. NO problems w/ anethesia in the past. +asthma. She had a EGD and esophageal foreign body removed which did show eosinophilic esophagitis. She thinks her signs and symptoms are well controlled on the Prilosec. She has been eating a very soft diet. She is she eats dry foods or meats she notes she will choke. She does need to have a follow-up EGD. She delayed having this because of Covid in part. Her brother had a EGD and dilation as a child and did have a perforation. She is very nervous about having EGD and colonoscopy. We discussed perforation in detail. And what would occur if this were to happen. Depending on the severity she would need to have surgery. We discussed eosinophilic esophagitis and its relation to food allergy. She also has asthma. Pshx lap tejas. T&A as child breast reduction EGD -No problems with anesthesia PmHx -no CA/CVA --No DM -Mother had vascular dememtia. today: HISTORY & PHYSICAL EXAMINATION PATIENT NAME: Grey Ulloa #: [id number] ADMITTING PROVIDER: Zahira Charles DOACCOUNT #: [id number] PRIMARY CARE PROVIDER:MAMTA VICTOR DATE OF ADMIT: 08/22/21 : 04/27/1966 Date of service: 08/22/21 Time of Service: 07:41 Assessment and Plan Assessment and plan (1) LUQ abdominal pain: Status: Acute (2) Family history of malignant neoplasm of gastrointestinal tract: Status: Acute (3) Above-elbow amputation: Status: Acute (4) Continuous tobacco abuse: Status: Acute (5) Sebaceous cyst: Status: Acute (6) Colon cancer screening: Status: Acute Assessment and plan: Plan:Colonscopy & EGD w/ MAC The patient will be scheduled by my office. The pt understands that they need to do a bowel prep and the importance of hydration during this. The patient understands there is a theoretical risk of renal failure. For healthy patients we use Gatorade/Miralax Prep. For anyone with renal concerns- GoLytely will be used. Plavix and coumadin will need to be held except in unusual circumstances. Patients in A. Fib do not need to be bridged with Lovenox or on CVA prophylaxis. A baby ASA can be continued but full dose ASA needs to be stopped for 10 days prior to the procedure. A complete H & P is required within 30 days of the procedure. MAC is used for the colonoscopy. Colonoscopy does not require antibiotics prophylaxis. Thank you for allowing me to participate in the care of this Patient. A copy of the Endoscopy report will be forwarded to your office. Informed consent is obtained for the procedural (explained in simple layman's terms that the pt and/or family could understand) explaining risks vs benefits and alternatives to the procedure and consequences if we do not do the procedure and need/rational for the procedure. Risks include but are not limited to: bleeding, infection, perforation of colon. This would necessitate emergency surgery to repair the damage w/ possible ostomy; and other associated complications w/ the required surgery. Also complications of anesthesia including aspiration, CA/CVA/. I discussed with the patient would they could expect during the procedure, post procedure and recovery time and risks. The patient understands that they need to have a ride home after the procedure. The patient was given all this information in writing and expressed understanding. to your office. If there are any questions or concerns please feel free to contact Patient completed bowel prep. She is not currently having any abdominal pain or nausea. She is not currently having any chest pain or shortness of breath. She has no productive cough or fevers. Current GI effluent is a clear yellow color. No changes in health status or medications. All questions are answered. Patient is stable for the procedure today Review of Systems All systems reviewed & are unremarkable except as noted in HPI and below PFSH All Active Problems (Updated 08/22/21 @ 07:39 by Zahira Charles DO) Colon cancer screening (Acute) GERD (gastroesophageal reflux disease) (Chronic) Hypertension (Chronic) Hypothyroidism (Chronic) Esophageal foreign body (Acute) Esophagitis (Acute) Benign esophageal stricture (Acute) Eosinophilic esophagitis (Acute) Food allergy (Acute) Diverticulitis large intestine (Acute) Medical History (Updated 08/22/21 @ 07:39 by Zahira Charles DO) Bilateral hearing loss Hx of cancer of endometrium Osteoarthritis Tendonitis of elbow or forearm Surgical History History of cholecystectomy History of colonoscopy History of hysterectomy for cancer History of tonsillectomy Social History Smoking/Tobacco Use Status: Never Second Hand Exposure: Yes Smoking risk assessment performed?: Yes Alcohol Intake: current Alcohol Intake frequency: holidays/special occasions only Drug use: Never Substance use type: does not use Seatbelt use: always Do you feel safe at home: Yes Do you feel safe in your relationship?: Yes Meds Allergies and Home Medications Allergies Allergy/AdvReac Type Severity Reaction Status Date / Time Sulfa (Sulfonamide Allergy Severe Verified 08/22/21 06:36 Antibiotics) bacitracin Allergy Unknown Verified 08/22/21 06:36 [From Neosporin ([id number])] neomycin Allergy Unknown Verified 08/22/21 06:36 [From Neosporin ([id number])] polymyxin B Allergy Unknown Verified 08/22/21 06:36 [From Neosporin ([id number])] banana Allergy Verified 08/22/21 06:36 green pepper Allergy Verified 08/22/21 06:36 iodine Allergy Verified 08/22/21 06:36 pineapple Allergy Verified 08/22/21 06:36 shellfish derived Allergy Verified 08/22/21 06:36 codeine AdvReac Severe [place]/Vomi Verified 08/22/21 06:36 ting hydrocodone AdvReac Severe [place]/Vomi Verified 08/22/21 06:36 ting oxycodone AdvReac Severe [place]/Vomi Verified 08/22/21 06:36 ting latex AdvReac Hives Verified 08/22/21 06:36 Home Medications Medication Instructions Recorded Confirmed Type amlodipine 5 mg tablet 5 mg PO HS 11/10/18 08/22/21 History cetirizine 10 mg tablet 10 mg PO DAILY 11/10/18 08/22/21 History levothyroxine 75 mcg tablet 75 mcg PO DAILY 11/10/18 08/22/21 History cholecalciferol (vitamin D3) 50 50 mcg PO DAILY 02/27/21 08/22/21 History mcg (2,000 unit) capsule omega-3 fatty acids 1,000 mg 1,000 mg PO DAILY 02/27/21 08/22/21 History capsule omeprazole 20 mg capsule,delayed 20 mg PO BID cap 02/27/21 08/22/21 History release CBD PO 06/19/21 History acetaminophen 500 mg oral powder 1,000 mg PO Q6H PRN 06/19/21 08/22/21 History packet ascorbic acid (vitamin C) 500 mg 1,000 mg PO DAILY cap 06/19/21 08/22/21 History capsule bisacodyl 5 mg tablet,delayed 5 mg PO ONCE #4 tab 06/19/21 08/22/21 Rx release melatonin 10 mg capsule 10 mg PO HS PRN 06/19/21 08/22/21 History polyethylene glycol 3350 17 238 g PO ONCE #238 g 06/19/21 08/22/21 Rx gram/dose oral powder Exam Narrative Exam Narrative: Patient completed bowel prep. She is not currently having any abdominal pain or nausea. She is not currently having any chest pain or shortness of breath. She has no productive cough or fevers. Current GI effluent is a clear yellow color. No changes in health status or medications. All questions are answered. Patient is stable for the procedure today. Resp Effort & Inspection: normal respiratory effort and able to speak in complete sentences Auscultation: clear to auscultation bilaterally Cardio Rate: regular rate Rhythm: regular rhythm Results Last Vital Signs Temp 36.4 C L 08/22/21 06:15 Pulse 89 08/22/21 06:15 Resp 100 H 08/22/21 06:15 BP 155/95 H 08/22/21 06:15 Pulse Ox 100 08/22/21 06:15
--- NOTE | 2021-08-22 08:13 | BOWEL_PTH ---
PATIENT: Mary Kate Barba LOC: [facility] U#:[id number] AGE/SX: 66/F ROOM: RE08/22/[address]: Zahira Charles : 1955 BED: DIS: 08/22/2021 SPEC #: [id number] RECD: 08/22/21 12:30 STATUS: VALENCIA RETamie #: [id number] MARLEY: 08/22/21 08:[address]: Zahira Charles DEPT: Surgical Specimen RECD BY: Denia Lorenz ENTERED: 08/22/21 12:32 SP TYPE: Bowel OTHR DR: Crystal Riley Tissues: 1 - BIOPSY BOWEL 2 - BIOPSY BOWEL 3 - STOMACH BIOPSY 4 - STOMACH BIOPSY 5 - ESOPHAGUS BIOPSY 6 - ESOPHAGUS BIOPSY Procedures: GROSS AND MICRO LEVEL 4 Comments: [id number]
[2021-08-22 08:50] VITALS: BP 150/85; PULSE 80; RESP 16; TEMP 36.4; O2SAT 95
--- NOTE | 2021-08-22 08:53 | W.ANESPOSTOP ---
Postoperative Evaluation Date, Time and Location Date Performed: 08/22/21 Time Performed: 08:53 Patient Location: Day Surgery Unit Vital Signs Most Recent Imported Vital Signs: Most Recent Vital Signs Temp Pulse Resp BP Pulse Ox 36.4 C L 89 100 H 155/95 H 100 08/22/21 06:15 08/22/21 06:15 08/22/21 06:15 08/22/21 06:15 08/22/21 06:15 Most Recent Manually Entered Vital Signs: Adult Blood Pressure: 150/85 Heart Rate: 85 Respirations: 12 Oxygen Saturation (%): 96 Temperature (C): 36.4 C Pain Score (0-10 Scale): 0 Assessment Mental Status: Awake (Alert & Oriented to Patient Baseline) Airway and Respiratory Function: Patent airway with normal (patient baseline) respiratory exam Cardiovascular Function: Hemodynamically Stable Hydration Status: Adequately Hydrated Nausea & Vomiting: No Nausea or Vomiting Pain: Pt. Denies Any Pain Peripheral Nerve Block: Patient did not receive a nerve block
[2021-08-22 08:54] VITALS: BP 150/85; PULSE 85; RESP 12; TEMPC 36.4; O2SAT 96
[2021-08-22 09:30] VITALS: BP 162/91; PULSE 77; RESP 18; TEMP 36.2; O2SAT 100
--- NOTE | 2021-08-22 09:36 | NUR.NOTE ---
Aug 22 2021 Upon arrival pt was quite agitated when asked any questions. Pt states this is redundant and she hates redundancy. Pt is hard of hearing because she left her 2 hearing aids at home. I positioned myself up close to the pt and spoke more loudly with no help. Pt insists we must accommodate her hearing loss. Pt continues to be angry and agitated so Willy RN brought in to start IV and pt cont to be angry with any questions asked by her. Anesthesia Tanner DIRECTOR TOXICOLOGY in to see pt and pt taken for procedure. On arrival back from procedure pt is crying and unable to be soothed. Pt eventually woke up a bit more and had some water to drink and was chatting on her cell phone. Waiting for Dr Charles to do discharge instructions and discharge pt. Nursing Note:
== END 2021-08-22 10:45 | disposition home or self-care (01) ==
PROVIDERS: PCP Family Medicine; Visit Provider Surgery
PROC: (CPT 45378; principal; 2021-08-22 07:30)
DX: K44.9 Diaphragmatic hernia without obstruction or gangrene; K29.70 Gastritis, unspecified, without bleeding; K22.2 Esophageal obstruction; K57.30 Diverticulosis of large intestine without perforation or abscess without bleeding; I10 Essential (primary) hypertension; E03.9 Hypothyroidism, unspecified; R10.9 Unspecified abdominal pain; Z87.19 Personal history of other diseases of the digestive system; K31.89 Other diseases of stomach and duodenum; K21.00 Gastro-esophageal reflux disease with esophagitis, without bleeding
CPT/HCPCS: 45378; 43239; 45380; 88305; J2001; J2250

== ENCOUNTER → 2021-09-08 13:32 | Outpatient (BNVA) | payer MEDICARE, SELFPAY | PROVIDERS: PCP Family Medicine; Referring Provider Family Medicine; Visit Provider Surgery | DX: Z48.815 Encounter for surgical aftercare following surgery on the digestive system (principal); K57.30 Diverticulosis of large intestine without perforation or abscess without bleeding; K21.9 Gastro-esophageal reflux disease without esophagitis; K20.0 Eosinophilic esophagitis; Z91.018 Allergy to other foods | CPT/HCPCS: 99212; 99213 ==

== ENCOUNTER → 2022-07-23 01:06 | Outpatient (CLI) | payer MEDICARE, SELFPAY ==
--- NOTE | 2022-07-23 | DI.MAMMO_ITS ---
Exam(s) MAMMO SCREENING EXAM: MAMMO SCREENING CLINICAL HISTORY: SCREENING, Z12.31, PREVENTATIVE CARE, Z00.00 TECHNIQUE: Bilateral full field digital CC and MLO mammographic images were obtained with 3D tomosyn thesis and utilizing computer aided detection (CAD). COMPARISON: Available for comparison. FINDINGS: Masses/Architectural Distortion: None seen. Microcalcifications: No suspicious pleomorphic-type are seen. Skin Thickening/Nipple Retraction: None. IMPRESSION: 1. No significant interval change with no specific features of malignancy noted. 2. Unless there is more urgent need, screening mammography is recommended, as per [employer] guidelines. BI-RADS Category 1 - Negative Breast Density - Category B - Scattered areas of fibroglandular density Breast density category C or D implies that the patient has dense breast tissue. Dense breast tissue is very common and is not abnormal but dense breast tissue can make it harder to find cancer on a ma mmogram. Also, dense breast tissue may increase their breast cancer risk. This information about the result of the mammogram report was provided to the patient to raise their awareness. Use this report when you speak with the patient about their risks for breast cancer, which includes their family hist ory. At that time, you may recommend for more screening tests (Ultrasound or MRI) as they might be us eful based on their risk. A negative radiographic report should not delay biopsy if a dominant or clinically suspicious mass is present. Up to ten percent of cancers are not identified on mammography. A negative report may reinforce clinical impression. Adenosis and dense breasts may obscure an underlying neoplasm. False positive reports average 6 to 10%. Patient will receive a letter notifying them of these results.
== END ==
PROVIDERS: PCP Family Medicine; Visit Provider Family Medicine
DX: Z12.31 Encounter for screening mammogram for malignant neoplasm of breast (principal)
CPT/HCPCS: 77063; 77067

== ENCOUNTER 2022-09-14 14:52 | Outpatient (REF) | payer MEDICARE, SELFPAY ==
[2022-09-14 15:32] LABS: HCT 41.8 % (36.0-46.0); HGB 13.7 g/dL (11.2-15.7); MCH 27.2 pg (27.0-33.0); MCHC 32.8 % (32.0-36.0); MCV 83 fL (80-95); MPV 9.6 fL (8.0-11.0); Platelet Count 252 10^3/uL (130-400); RBC 5.04 10^6/uL (3.93-5.22); RDW 13.2 % (11.7-14.6); RDW-SD 39.6 fL; WBC 5.55 10^3/uL (4.4-10.8)
[2022-09-14 15:53] LABS: ALT 42 U/L (14-59); AST 28 U/L (15-37); Albumin 4.2 g/dL (3.4-5.0); Alkaline Phosphatase 150 U/L (46-116); Anion Gap 10.6 mmol/L (3-11); BUN 13 mg/dL (7-18); Bilirubin, Total 0.5 mg/dL (0.2-1.0); CO2 25.4 mmol/L (21.0-32.0); CREATININE 0.8 mg/dL (0.55-1.02); Calcium 9.3 mg/dL (8.5-10.1); Calculated LDL 140 mg/dL (<100); Chloride 106 mmol/L (98-107); Cholesterol 220 mg/dL (<200); Estimated GFR 80.21 (mL/min/1.73m2); Glucose 112 mg/dL (74-106); HDL Cholesterol 54 mg/dL (40-60); Potassium 3.8 mmol/L (3.5-5.1); Sodium 142 mmol/L (136-145); TSH (W/Ref FT4) 1.09 uIU/mL (0.36-3.74); Total Protein 7.1 g/dL (6.4-8.2); Triglyceride 130 mg/dL (<150)
== END 2022-09-14 14:53 | disposition home or self-care (01) ==
LOC: NCHCN 14:52
PROVIDERS: PCP Family Medicine; Visit Provider Family Medicine
DX: E03.9 Hypothyroidism, unspecified (principal); K57.32 Diverticulitis of large intestine without perforation or abscess without bleeding
CPT/HCPCS: 80053; 80061; 85027; 84443

== ENCOUNTER → 2024-01-26 00:32 | Outpatient (CLI) | payer MEDICARE, SELFPAY ==
--- NOTE | 2024-01-26 | DI.MAMMO_ITS ---
Exam(s) MAMMO SCREENING EXAM: MAMMO SCREENING CLINICAL HISTORY: SCREENING, Z12.39. TECHNIQUE: Bilateral full field digital CC and MLO mammographic images were obtained with 3D tomosyn thesis and utilizing computer aided detection (CAD). COMPARISON: Prior mammograms were reviewed. FINDINGS: There has been no significant change in the appearance and distribution of the fibroglandular tissue. There are no CAD designations. There are no new spiculated masses nor malignant appearing microcalcification groups. There is no significant architectural distortion nor skin thickening-retraction. IMPRESSION: No radiographic evidence of malignancy. BI-RADS Category 1 - Negative Breast Density - Category B - Scattered areas of fibroglandular density Breast density Category C or D implies that the patient has dense breast tissue. Dense breast tissue can make it harder to find cancer on a mammogram. Dense breast tissue is also associated with an incr eased risk of breast cancer. This information about the result of the mammogram report was provided to the patient to raise their awareness. Use this report when you speak with the patient about their risks for breast cancer, which includes their family history. At that time, you may recommend additional screening tests (Ultrasoun d or MRI) as these tests may add significant information. A negative radiographic report should not delay biopsy if a dominant or clinically suspicious mass is present. Up to ten percent of cancers are not identified on mammography. A negative report may reinforce clinical impression. Adenosis and dense breasts may obscure an underlying neoplasm. False positive reports average 6 to 10%. Patient will receive a letter notifying them of these results.
== END ==
PROVIDERS: PCP Family Medicine; Visit Provider Physician Assistant Medical
DX: Z12.31 Encounter for screening mammogram for malignant neoplasm of breast (principal)
CPT/HCPCS: 77063; 77067

== ENCOUNTER 2024-03-14 11:24 | Outpatient (REF) | payer MEDICARE, SELFPAY ==
[2024-03-14 15:24] LABS: ALT 32 U/L (14-59); AST 17 U/L (15-37); Alkaline Phosphatase 142 U/L (46-116); Anion Gap 5.7 mmol/L (3-11); BUN 12 mg/dL (7-18); Bilirubin, Total 0.58 mg/dL (0.2-1.0); CO2 31.3 mmol/L (21.0-32.0); CREATININE 0.8 mg/dL (0.55-1.02); Calculated LDL 126 mg/dL (<100); Chloride 106 mmol/L (98-107); Cholesterol 209 mg/dL (<200); Estimated GFR 79.71 (mL/min/1.73m2); Glucose 94 mg/dL (74-106); HDL Cholesterol 54 mg/dL (40-60); Potassium 4.4 mmol/L (3.5-5.1); Sodium 143 mmol/L (136-145); Total Protein 6.6 g/dL (6.4-8.2); Triglyceride 146 mg/dL (<150); Vitamin D 25 Total 49.3 ng/mL (30-100)
== END 2024-03-14 11:25 | disposition home or self-care (01) ==
LOC: NCHCN 11:24
PROVIDERS: PCP Family Medicine; Visit Provider Family Medicine
DX: I10 Essential (primary) hypertension (principal); K21.9 Gastro-esophageal reflux disease without esophagitis; Z79.899 Other long term (current) drug therapy
CPT/HCPCS: 80053; 80061; 82306

== ENCOUNTER 2024-04-19 18:58 | Outpatient (REF) | payer MEDICARE, SELFPAY ==
[2024-04-19 21:30] LABS: GGT 24 U/L (5-55)
== END 2024-04-19 18:59 | disposition home or self-care (01) ==
LOC: NCHCN 18:58
PROVIDERS: PCP Family Medicine; Visit Provider Family Medicine
DX: R74.8 Abnormal levels of other serum enzymes (principal)
CPT/HCPCS: 82977

== ENCOUNTER 2025-01-19 14:52 | Outpatient (REF) | payer MEDICARE, SELFPAY | END 2025-01-19 14:53 | disposition home or self-care (01) | LOC: LBN 14:52 | PROVIDERS: PCP Family Medicine; Visit Provider Physician Assistant Medical | DX: J01.90 Acute sinusitis, unspecified (principal) | CPT/HCPCS: 87070 ==

== ENCOUNTER 2025-01-23 16:36 | Outpatient (CLI) | payer MEDICARE, SELFPAY ==
--- NOTE | 2025-01-23 16:57 | DI.RAD_ITS ---
Exam(s) XR CHEST 2V PA LATERAL EXAM: XR CHEST 2V PA LATERAL CLINICAL HISTORY: Cough R05.1. TECHNIQUE: 2D digital imaging was performed. COMPARISON: No exams were available for comparison FINDINGS: 2 views: Heart size is normal. The mediastinum is not widened. Right lung is clear. There increased markings in the left suprahilar region which are probably scarr ing in the left upper lobe, but without previous for comparison. No other significant focal lung fin dings and no pleural effusions. No pulmonary edema. No fractures evident. IMPRESSION: Left suprahilar are-left upper lobe increased markings probably scarring. Comparison to any prior ou tside chest x-rays would be helpful if they exist. If not then consider CT scan follow-up. DATA REPOSITORY: RADIATION DOSE DELIVERED:
--- NOTE | 2025-01-23 17:45 | DI.VRAD_ITS ---
PROCEDURE INFORMATION: Exam: XR Chest Exam date and time: 01/23/2025 4:52 PM Age: 69 years old Clinical indication: Cough TECHNIQUE: Imaging protocol: Radiologic exam of the chest. Views: 2 views. COMPARISON: CT ABDOMEN PELVIS W 01/31/2021 3:09 PM FINDINGS: Lungs: The lung emery are mildly hyperinflated. The lung emery are clear. No acute infiltrates identified. Pleural spaces: No effusions or pneumothoraces. Heart/Mediastinum: The heart is normal in size. The superior mediastinum is unremarkable. Bones/joints: There are mild degenerative changes of the midthoracic spine without acute bony change. Other: There are surgical clips in the right upper quadrant of the abdomen consistent with a prior cholecystectomy. IMPRESSION: 1. Mild hyperinflation but no acute cardiopulmonary disease. Dictated and Authenticated by: Chu Young MD. Orderin Demetrio Downing MD
== END 2025-01-23 16:56 ==
LOC: DI 16:37
PROVIDERS: PCP Family Medicine; Visit Provider Physician Assistant Medical
DX: R05.1 Acute cough (principal); R91.8 Other nonspecific abnormal finding of lung field
CPT/HCPCS: 71046

== ENCOUNTER 2025-03-05 14:24 | Outpatient (REF) | payer MEDICARE, SELFPAY ==
[2025-03-05 16:25] LABS: COMMENT (LAB VIEW ONLY) 79.66 mg/dL; Microalb ug/mg Crea 5.4 ug/mg Cr
== END 2025-03-05 14:25 | disposition home or self-care (01) ==
LOC: NCHCN 14:24
PROVIDERS: PCP Family Medicine; Visit Provider Family Medicine
DX: I10 Essential (primary) hypertension (principal)
CPT/HCPCS: 82043; 82570

== ENCOUNTER 2025-07-16 10:56 | Outpatient (REF) | payer MEDICARE, SELFPAY ==
[2025-07-16 16:03] LABS: ALT 31 U/L (10-49); AST 26 U/L (<34); Albumin 4.4 g/dL (3.2-5.0); Alkaline Phosphatase 108 U/L (46-116); Anion Gap 7.5 mmol/L (3-11); BUN 24 mg/dL (9-23); Bilirubin, Total 0.60 mg/dL (0.2-1.2); CO2 31.5 mmol/L (20.0-31.0); Calcium 8.8 mg/dL (8.3-10.6); Chloride 106 mmol/L (98-107); Cholesterol 201 mg/dL (<200); Glucose 96 mg/dL (74-106); HDL Cholesterol 51 mg/dL (>40); Potassium 3.4 mmol/L (3.5-5.1); Sodium 145 mmol/L (136-145); TSH (W/Ref FT4) 1.22 uIU/mL (0.55-4.78); Total Protein 6.4 g/dL (5.7-8.2)
== END 2025-07-16 10:57 | disposition home or self-care (01) ==
LOC: NCHCN 10:56
PROVIDERS: PCP Family Medicine; Visit Provider Family Medicine
DX: E03.9 Hypothyroidism, unspecified (principal); I10 Essential (primary) hypertension
CPT/HCPCS: 80053; 80061; 84443